=== PATIENT | male | born 1975 | race Caucasian/White ===

== ENCOUNTER 2019-04-19 05:48 | Outpatient (CLI) | payer MEDICAID ==
[~2019-04-19] VITALS: Ht 177.8 cm; Wt 91.0 kg
== END 2019-04-19 12:53 | disposition home or self-care (01) ==
LOC: PREOP 05:48
PROVIDERS: ATTEND Surgery
DX: Z01.818 Encounter for other preprocedural examination (principal)

== ENCOUNTER 2019-12-25 16:40 | Emergency (ER) | payer MEDICAID ==
[~2019-12-25] VITALS: Ht 177 cm; Wt 95.2 kg
[~2019-12-25 16:40] MED LIST: PANT40TA2 PO
[2019-12-25 17:00] VITALS: BP 150/100
--- NOTE | 2019-12-25 17:28 | ED Lower Extremity ---
General Chief Complaint: Lower Extremity Stated Complaint: RIGHT LEG PAIN Nursing Triage Note: pt presents to ed with complaints of r knee throbbing x 2 weeks. reports he has not seen a pcp for this before. Nursing Sepsis Screen: No Definite Risk Source: patient Exam Limitations: no limitations History of Present Illness Date Seen by Provider: Dec 25, 2019 Time Seen by Provider: 17:10 Initial Comments Here with complaint of right knee and leg pain in the area above the knee to mid calf posteriorly that has been waxing and waning over the last 2 weeks. 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 Travels several hundred miles each day. Denies significant swelling and does not remember any specific injury at onset although did twist it the other day that seems to have worsened it. Onset: other (2 weeks) Severity: moderate Pain/Injury Location: right knee Method of Injury: unknown Modifying Factors: Improves With Immobilization; Worse With Movement Allergies and Home Medications Allergies Coded Allergies: No Known Drug Allergies (Verified , 04/26/19) Home Medications Pantoprazole Sodium 40 Mg Tablet.dr, 40 MG PO DAILY Prescribed by: HO CORONADO on 04/26/19 1351 Patient Home Medication List Home Medication List Reviewed: Yes Review of Systems Constitutional: see HPI; No chills, No fever Respiratory: no symptoms reported Cardiovascular: no symptoms reported Musculoskeletal: see HPI, joint pain, joint swelling, muscle pain Skin: no symptoms reported Psychiatric/Neurological: No Symptoms Reported Past Ewcyrya-Tltbil-Glbwto Hx Past Med/Social Hx: Reviewed Nursing Past Med/Soc Hx Patient Social History Alcohol Use: Denies Use Recreational Drug Use: No Smoking Status: Never a Smoker Recent Foreign Travel: No Contact w/Someone Who Travel: No Recent Infectious Disease Expo: No Recent Hopitalizations: No Physical Abuse: No Sexual Abuse: No Mistreated: No Fear: No Seasonal Allergies Seasonal Allergies: Yes Past Medical History Surgeries: No (endoscopy, colonoscopy) Respiratory: No Cardiac: No Neurological: No Genitourinary: No Gastrointestinal: Yes Gastroesophageal Reflux, Chronic Diarrhea Musculoskeletal: No Endocrine: No HEENT: No Cancer: No Psychosocial: No Integumentary: No Blood Disorders: No Family Medical History Reviewed Nursing Family Hx Physical Exam Vital Signs Vital Signs - First Documented 12/25/19 17:00 Temp 36.7 Pulse 87 Resp 20 B/P (MAP) 150/100 (117) Pulse Ox 98 Capillary Refill : Less Than 3 Seconds Height, Weight, BMI Height: '" Weight: lbs. oz. kg; 30.00 BMI Method: General Appearance: WD/WN, no apparent distress Cardiovascular: regular rate, rhythm, no murmur Respiratory: lungs clear, normal breath sounds Knees: left knee non-tender, left knee normal inspection, left knee normal range of motion, left knee no evidence of injury; right knee other (tender to the upper posterior calf and lower portion of the upper leg behind the knee. No significant swelling noted. No effusion noted. Negative drawer and negative laxity but pain with range of motion especially posteriorly.) Neurologic/Psychiatric: alert, oriented x 3 Skin: normal color, warm/dry Progress/Results/Core Measures Results/Orders Lab Results Laboratory Tests Test 12/25/19 17:23 Range/Units White Blood Count 7.4 4.3-11.0 10^3/uL Red Blood Count 5.10 4.35-5.85 10^6/uL Hemoglobin 14.9 13.3-17.7 G/DL Hematocrit 42 40-54 % Mean Corpuscular Volume 83 80-99 FL Mean Corpuscular Hemoglobin 29 25-34 PG Mean Corpuscular Hemoglobin Concent 35 32-36 G/DL Red Cell Distribution Width 13.1 10.0-14.5 % Platelet Count 226 130-400 10^3/uL Mean Platelet Volume 9.3 7.4-10.4 FL Neutrophils (%) (Auto) 69 42-75 % Lymphocytes (%) (Auto) 23 12-44 % Monocytes (%) (Auto) 7 0-12 % Eosinophils (%) (Auto) 2 0-10 % Basophils (%) (Auto) 0 0-10 % Neutrophils # (Auto) 5.1 1.8-7.8 X 10^3 Lymphocytes # (Auto) 1.7 1.0-4.0 X 10^3 Monocytes # (Auto) 0.5 0.0-1.0 X 10^3 Eosinophils # (Auto) 0.1 0.0-0.3 10^3/uL Basophils # (Auto) 0.0 0.0-0.1 10^3/uL D-Dimer < 0.27 0.00-0.49 UG/ML Sodium Level 138 135-145 MMOL/L Potassium Level 4.1 3.6-5.0 MMOL/L Chloride Level 106 98-107 MMOL/L Carbon Dioxide Level 23 21-32 MMOL/L Anion Gap 9 5-14 MMOL/L Blood Urea Nitrogen 17 7-18 MG/DL Creatinine 1.25 0.60-1.30 MG/DL Estimat Glomerular Filtration Rate > 60 BUN/Creatinine Ratio 14 Glucose Level 101 70-105 MG/DL Calcium Level 8.4 L 8.5-10.1 MG/DL Corrected Calcium 8.2 L 8.5-10.1 MG/DL Total Bilirubin 0.4 0.1-1.0 MG/DL Aspartate Amino Transf (AST/SGOT) 18 5-34 U/L Alanine Aminotransferase (ALT/SGPT) 20 0-55 U/L Alkaline Phosphatase 74 40-136 U/L Total Protein 7.1 6.4-8.2 GM/DL Albumin 4.2 3.2-4.5 GM/DL My Orders Orders - IMANI COWART MD Cbc With Automated Diff (12/25/19 17:17) Comprehensive Metabolic Panel (12/25/19 17:17) Fibrin Degradation Products (12/25/19 17:17) Vital Signs/I&O 12/25/19 17:00 Temp 36.7 Pulse 87 Resp 20 B/P (MAP) 150/100 (117) Pulse Ox 98 Blood Pressure Mean: 117 Progress Progress Note : Progress Note Seen and evaluated. 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 Physical exam is not concerning for blood clots, only history. Patient agrees. Monitor patient. 1752: No acute findings. Discharged home with return precautions. Patient verbalize understanding instructions and agreement with plan. Departure Impression Primary Impression: Right knee sprain Qualified Codes: S83.91XA - Sprain of unspecified site of right knee, initial encounter Disposition: 01 HOME, SELF-CARE Condition: Stable Departure-Patient Inst. Decision time for Depature: 17:54 Referrals: ALLA BANUELOS (PCP) Primary Care Physician Patient Instructions: Knee Sprain (DC) Add. Discharge Instructions: All discharge instructions reviewed with patient and/or family. Voiced understanding. He may take ibuprofen 600 mg every 8 hours as needed for pain. You may take Tylenol/acetaminophen 1000 mg every 8 hours as needed for pain. You may use ice packs to area concern 20 minutes per hour as needed. You may use topical icy hot with lidocaine, Aspercreme or similar topical agent to area of concern per package directions. Follow up with your doctor for recheck in a few days as needed. Return for worse pain, swelling, weakness or other concerns as needed. IMANI COWART MD Dec 25, 2019 17:28
[2019-12-25 17:31] LABS: BASOPHILS % (AUTO) 0 % (0-10); EOSINOPHILS # (AUTO) 0.1 10^3/uL (0.0-0.3); EOSINOPHILS % (AUTO) 2 % (0-10); HEMATOCRIT 42 % (40-54); HEMOGLOBIN 14.9 G/DL (13.3-17.7); LYMPHOCYTES # (AUTO) 1.7 X 10^3 (1.0-4.0); LYMPHOCYTES % (AUTO) 23 % (12-44); MEAN CORPUSCULAR HEMOGLOBIN 29 PG (25-34); MEAN CORPUSCULAR HGB CONC 35 G/DL (32-36); MEAN CORPUSCULAR VOLUME 83 FL (80-99); MEAN PLATELET VOLUME 9.3 FL (7.4-10.4); MONOCYTES # (AUTO) 0.5 X 10^3 (0.0-1.0); MONOCYTES % (AUTO) 7 % (0-12); NEUTROPHILS # (AUTO) 5.1 X 10^3 (1.8-7.8); NEUTROPHILS % (AUTO) 69 % (42-75); PLATELET COUNT 226 10^3/uL (130-400); WHITE BLOOD COUNT 7.4 10^3/uL (4.3-11.0)
[2019-12-25 17:39] LABS: ALBUMIN 4.2 GM/DL (3.2-4.5)
[2019-12-25 17:40] LABS: CHLORIDE 106 MMOL/L (98-107); POTASSIUM 4.1 MMOL/L (3.6-5.0); SODIUM 138 MMOL/L (135-145)
[2019-12-25 17:41] LABS: CALCIUM 8.4 MG/DL (8.5-10.1)
[2019-12-25 17:42] LABS: GLUCOSE 101 MG/DL (70-105); TOTAL PROTEIN 7.1 GM/DL (6.4-8.2)
[2019-12-25 17:43] LABS: CARBON DIOXIDE 23 MMOL/L (21-32)
[2019-12-25 17:44] LABS: BILIRUBIN,TOTAL 0.4 MG/DL (0.1-1.0)
[2019-12-25 17:45] LABS: ALKALINE PHOSPHATASE 74 U/L (40-136)
[2019-12-25 17:46] LABS: CREATININE SERUM 1.25 MG/DL (0.60-1.30); GFR ESTIMATED > 60
[2019-12-25 17:47] LABS: BUN/CREATININE RATIO 14
[2019-12-25 17:48] LABS: ALANINE AMINOTRANSFERASE 20 U/L (0-55)
== END 2019-12-25 18:01 | disposition home or self-care (01) ==
LOC: EDUNIT# 16:40 → ER 16:42
DX: S76.111A Strain of right quadriceps muscle, fascia and tendon, initial encounter (principal); K21.9 Gastro-esophageal reflux disease without esophagitis; X50.1XXA Overexertion from prolonged static or awkward postures, initial encounter
CPT/HCPCS: 36415; 80053; 85025; 85379